=== PATIENT | female | born 1940 | race Caucasian/White ===

== ENCOUNTER → 2020-07-19 | Outpatient (CLI) | payer MEDICARE, BC, OTHER ==
--- NOTE | 2020-07-19 09:37 | REP ---
INDICATION: ATHSCL [place] ARTERIES COMPARISON: None. TECHNIQUE: Real time jefferson scale and Duplex Doppler evaluation of the bilateral lower extremity arterial vasculature using linear high frequency transducer. FINDINGS: Jefferson scale and duplex doppler images demonstrate mild amounts of atheromatous plaquing with areas of mild narrowing but no focal stenosis identified. There is no occlusion. Doppler interrogation demonstrates normal arterial wave forms and velocities bilaterally. Peak systolic velocities (cm/sec) Common femoral artery: Right 122; Left 109 Profunda femoris: Right 61; Left 80 SFA (proximal): Right 133; Left 123 SFA (mid): Right 82; Left 98 SFA (distal): Right 47; Left 92 Popliteal artery: Right 48; Left 67 NYLA (prox.): Right 47; Left 85 Tibioperoneal trunk: Right 55; Left 49 ECONOMIC ANALYST (prox.): Right 43; Left 33 ECONOMIC ANALYST (distal): Right 78; Left 71 NYLA (distal): Right 50; Left 83 IMPRESSION: Atheromatous changes with areas of narrowing but no focal occlusion or stenosis. <Electronically signed by Bimal Jefferson > 07/19/20 0984
== END ==
LOC: M RAD 08:16
PROVIDERS: ATTEND Physician Assistant
DX: I70.203 Unspecified atherosclerosis of native arteries of extremities, bilateral legs (principal); R09.89 Other specified symptoms and signs involving the circulatory and respiratory systems